=== PATIENT | female | born 1950 | race Caucasian/White ===

== ENCOUNTER 2019-01-15 05:45 | Day surgery (SDC) | payer OTHER ==
[~2019-01-15] VITALS: Ht 172.7 cm; Wt 109.3 kg
--- NOTE | ~2019-01-15 | OR ---
[facility] [address] [place], [place] [address] [place] DATE OF OPERATION: 01/15/2019 SURGEON: Karla Cortez DPM PREOPERATIVE DIAGNOSES: 1. Hallux rigidus, left foot. 2. Hammertoe deformity. 3. Exostosis formation IPJ, left first digit. POSTOPERATIVE DIAGNOSES: 1. Hallux rigidus, left foot. 2. Hammertoe deformity. 3. Exostosis formation IPJ, left first digit. OYSTER CULLER: Dequan Lobo DPM. NURSE STORAGE BRINE WORKER: Mirtha Sylvester. ANESTHESIA: Consisted of a local with MAC approximately 15 mL with 1:1 mix of 2% lidocaine plain and 0.5% ropivacaine. ESTIMATED BLOOD LOSS: Less than 5 mL or minimal. HEMOSTASIS: Provided by ankle tourniquet. MATERIALS UTILIZED: 1. Bone wax. 2. 4-0 Vicryl. 3. 3-0 Vicryl. 4. 5-0 nylon. DESCRIPTION OF PROCEDURE: The patient was brought into the operating room and placed upon the operating table in the supine position. Following IV sedation, the above local anesthesia was administered about the patient's left first and second digits and metatarsal joint regions. The left PATIENT NAME: DEBBY FULLER OPERATIVE REPORT DATE OF : 46 REPORT #: [id number] PHYSICIAN: KARLA CORTEZ DPM PCP: SHANTELL SAMUEL MD REPORT IS CONFIDENTIAL AND NOT TO BE RELEASED WITHOUT AUTHORIZATION [facility] [address] [place], [place] [address] Draft foot was then scrubbed, prepped, and draped in the usual sterile technique. An Esmarch was then utilized to exsanguinate the patient's left foot and then left wrapped around the ankle as a tourniquet. Attention was then directed to the patient's left first MTPJ where approximately a 4 cm linear incision was performed both parallel and medial to the tendon of extensor hallucis longus. Incision was then deepened down to the level of the joint capsule through the subcutaneous tissue with care being taken to identify and retract vital neurovascular structures. Bleeders were cauterized and ligated as necessary. At this point, a linear capsulotomy was performed via a [place] blade and the joint capsule was reflected off the dorsal medial aspect of the first metatarsal. Thus, revealing a bony prominence at this area. Articular cartilage on the dorsal medial aspect of the first metatarsal also was showing significant signs of wear in this region. Sagittal saw was utilized to resect the dorsal medial eminence from the first metatarsal and resect the dorsal hypertrophic bone formation on the dorsal aspect of the bone including the medial 60% of that. A bone rasp was also utilized to help smooth the bone. Palpation of the joint area revealed that bony prominence had been significantly reduced. Area was then flushed with copious amounts of sterile normal saline and bone wax was applied to the raw area of the bone on the dorsal metatarsal and then lightly flushed with normal saline again. Attention was then directed to the second digit at the level of the PIPJ. Two semi-elliptical converting incisions approximately 1.5 cm in length were performed over the PIPJ thus creating a skin island. This was performed utilizing a #15 blade. Skin island was then removed utilizing forceps and the surgical blade. A #64 [place] blade was then utilized to perform a transverse tenotomy and capsulotomy, thus exposing the articular surface. The collateral ligaments were resected and soft tissue was freed from around the first metatarsal head. Sagittal saw was then utilized to resect the proximal phalanx head of the second digit. A rongeur and a bone rasp were utilized to smooth the edge of the distal phalanx after completion of the osteotomy. There was a slight discoloration noted to the bone of the head of the proximal phalanx, therefore this specimen was sent off to pathology for microscopic examination. This area was then flushed with copious amounts of sterile normal saline. Attention was then directed to the lateral aspect of the first digit IPJ where approximately a 2 cm incision was performed with a #15 blade. This was then extended down to the joint capsule. #64 blade was utilized to release some of the soft tissue joint capsule area over the medial eminence. [place] and a bone rasp were then utilized to reduce bony enlargement in this area. Bone had a normal coloration, normal density, and was seen to be uniform with the surrounding bone as well. This area was then flushed with copious amount of normal sterile saline, and the area was palpated and found that the bony prominence had been adequately reduced. Surgical sites were then closed. 4-0 Vicryl was then utilized to reapproximate the capsule on the first metatarsophalangeal joint. 3-0 Vicryl was utilized to reapproximate and coapt the tendon on the second digit at the level of the PIPJ. 4-0 Vicryl was utilized to reapproximate and coapt the subcutaneous tissue at the 1st MTPJ and then skin was closed on all 3 surgical sites utilizing 5-0 nylon utilizing simple interrupted sutures and PATIENT NAME: DEBBY FULLER OPERATIVE REPORT DATE OF : 46 REPORT #: [id number] PHYSICIAN: KARLA CORTEZ DPM PCP: SHANTELL SAMUEL MD REPORT IS CONFIDENTIAL AND NOT TO BE RELEASED WITHOUT AUTHORIZATION [facility] [address] [facility] [place] [address] Draft continuous interlocking sutures. Postoperative injection consisting of 5 mL of 0.5% ropivacaine and 1 mL of dexamethasone phosphate 4 mg/mL was then injected above the surgical sites. Foot was then dressed utilizing silver Mepilex wrapped loosely around the toes as well as covering the MTPJ area. Soft rolled guaze was then applied to secure the foam dressing followed by a coban wrap. Ankle tourniquet was removed and prompt hyperemic response was noted to all digits of the patient's left foot. The patient had tolerated both procedure and the anesthesia well and was escorted to the recovery room with vital signs stable and cap refill time less than 3 seconds. Following a period of postoperative monitoring, the patient was discharged to home with both written and oral instructions. MYRA Yarbrough/RUSSELL /[id number] Copies: ~ PATIENT NAME: DEBBY FULLER OPERATIVE REPORT DATE OF : 46 REPORT #: [id number] PHYSICIAN: KARLA CORTEZ DPM PCP: SHANTELL SAMUEL MD REPORT IS CONFIDENTIAL AND NOT TO BE RELEASED WITHOUT AUTHORIZATION
[~2019-01-15 05:45] MED LIST: ACIDOPHILUS1 EAC4 PO; ASPIR-LOW81 MG PO; B-121000 MC2 PO; CALCIUM CARBON650 MG PO; CINNAMON500 MG PO; DICLOFENAC SOD100 G1 TOP; DOCUSATE SODIU250 MG PO; ESTRACE0.5 MG PO; FLONASE ALLERG9.9 ML NAS; FORFIVO XL450 MG PO; GABAPENTIN300 MG PO; LANTUS100 UNITS/ SUB-Q; LEVOTHYROXINE112 MCG PO; MECLIZINE HCL25 MG PO; MEDROXYPROGESTE10 MG PO; METFORMIN HCL1000 MG PO; MULTIVITAMINS1 EAC8 PO; NITROGLYCERIN0.4 MG SL; OMEPRAZOLE20 MG PO; PRAVASTATIN SOD40 MG PO; SERTRALINE HCL100 MG PO; VITAMIN D31000 UNIT PO; ZESTRIL10 MG PO
--- NOTE | 2019-01-15 06:47 | NUR ---
LE 0600: PATIENT INSISTS NO IV PLACEMENT IN HAND OR WRIST. 0640: PATIENT RINGS CALL LIGHT AND ASKS "ARE YOU GOING TO LET ME IN HERE?" PATIENT IS REASSURED. DOCTOR AT THE BEDSIDE.
--- NOTE | 2019-01-15 07:02 | NUR ---
PATIENT UP TO THE BATHROOM PUSHING HER IV POLE. PATIENT AMBULATES WELL AND DENIES DIZZINESS. RECHECK OF BLOOD SUGAR AFTER DEXTROSE ADMINISTRATION IS 120. TRAVEL FREIGHT AND PASSENGER AGENT AT BEDSIDE SPEAKING WITH PATIENT.
--- NOTE | 2019-01-15 08:40 | NUR ---
01/15/19 0840 Florina Horn 0835 PT AWAKE AND ALERT DENIES PAIN PT CAME IN ON RA SATS MAINTAIN AT ABOVE 95%. BLOOD SUGAR AT 78.
== END 2019-01-15 09:22 | disposition home or self-care (01) ==
LOC: OPS 05:45 → DS 05:45 → OPS 06:45
PROVIDERS: Podiatrist Foot & Ankle Surgery
PROC: 0SNQ0ZZ Release Left Toe Phalangeal Joint, Open Approach (ICD-10-PCS; 2019-01-15)
PROC: 0QBR0ZZ Excision of Left Toe Phalanx, Open Approach (ICD-10-PCS; 2019-01-15)
PROC: 0QBR0ZZ Excision of Left Toe Phalanx, Open Approach (ICD-10-PCS; principal; 2019-01-15 06:45)
PROC: 0L8W0ZZ Division of Left Foot Tendon, Open Approach (ICD-10-PCS; 2019-01-15 06:45)
DX: M20.22 Hallux rigidus, left foot (principal); M20.42 Other hammer toe(s) (acquired), left foot; M89.9 Disorder of bone, unspecified; M19.072 Primary osteoarthritis, left ankle and foot; E11.9 Type 2 diabetes mellitus without complications; Z88.2 Allergy status to sulfonamides; Z88.6 Allergy status to analgesic agent; Z88.1 Allergy status to other antibiotic agents; Z88.8 Allergy status to other drugs, medicaments and biological substances; Z79.899 Other long term (current) drug therapy; Z79.4 Long term (current) use of insulin; Z79.82 Long term (current) use of aspirin
CPT/HCPCS: 73630; J0690; J1100; J2250; J2704; J2795; J7120